=== PATIENT | female | born 1940 | race Caucasian/White ===

== ENCOUNTER 2018-01-28 12:16 | Inpatient (IN) | payer MEDICARE ==
[~2018-01-28] VITALS: Ht 160 cm; Wt 53.5 kg
--- NOTE | ~2018-01-28 | PN ---
PATIENT:AQUILES FOSTER MEDICAL RECORD: [id number] LOCATION:DIPTI Ross ADMISSION DATE: 01/28/18 PROGRESS NOTE DATE OF SERVICE: 01/30/2018 SUBJECTIVE: The patient states "I am getting worse." OBJECTIVE: Staff report that the patient has showed episodes of rather histrionic behavior. At one point, she entered the bathroom in her room and began pulling her own hair saying over and over to the image in the mirror "don't breakdown don't breakdown." Staff was able to meet with the patient's family. Daughters report that the patient has actually had lifelong mood swings. Staff also report some repetitive behaviors, which the daughter's confirm have been present for some time. The family is strongly interested in having the patient placed in an assisted living situation due to her suicidality. The patient was administered the Darby depression inventory. Despite the fact that the patient was told to be forthright and honest it appears that her responses on the inventory were invalid. She skewed her answers to give the appearance of minimal depressive symptoms, which is in strong contradistinction to her clinical presentation, statements to staff and family, and of course recent lethal suicide attempt. A self administered testing may not be helpful in this case. On exam, the patient's mood is irritable. Affect is brittle. Speech is rather terse. Content of thought focuses on somatic complaints. Sensorium shows no change. ASSESSMENT: No change in diagnosis. PLAN: 1. We will continue to maintain very close observation and monitoring. 2. We will work with family regarding aftercare plans. 3. Adjust medications as indicated. TRANSINT:[id number] Voice Confirmation ID: [id number] DOCUMENT ID: [id number] CANDE WATTERS III, MD at 0530 CC: [id number] DICTATION DATE: 01/30/18 1156 JOB HONER: 01/30/18 1301 ADM IN [facility] [address] [place] [address]
--- NOTE | ~2018-01-28 | PN ---
PATIENT:AQUILES FOSTER MEDICAL RECORD: [id number] LOCATION:DIPTI YangJacey112 ADMISSION DATE: 01/28/18 PROGRESS NOTE DATE OF SERVICE: 02/05/2018 SUBJECTIVE: The patient's case was discussed with staff. She has no new complaint. OBJECTIVE: The patient is in good behavioral control, but has some somatic complaints. It may be related to her medications and apparently she had similar complaints yesterday. Her medications were changed and the dosing times were changed to try to address this. I think there just has not been enough time with the changes made yesterday to see if there is any improvement. PLAN: The patient's family has given some history that is very consistent with an undiagnosed bipolar disorder. Based on this presumptive information, I am going to start her on a low dose of Depakote that I will titrate upward. TRANSINT:[id number] Voice Confirmation ID: [id number] DOCUMENT ID: [id number] BECKI HERRERA MD at 1159 CC: [id number] DICTATION DATE: 02/05/18 1255 TIME CLERK: 02/05/18 1312 ADM IN [facility] [address] [place] [address]
--- NOTE | ~2018-01-28 | PN ---
PATIENT:AQUILES FOSTER MEDICAL RECORD: [id number] LOCATION:DIPTI Ross ADMISSION DATE: 01/28/18 PROGRESS NOTE DATE OF SERVICE: 02/04/2018 SUBJECTIVE: No new complaint. OBJECTIVE: The patient is more alert and more animated today. She is participating somewhat better in group activities. On exam, mood is pleasant and euthymic. Affect is bland. Speech is fluent. Content of thought is negative for suicidal ideation. Sensorium shows no change. ASSESSMENT: No change in diagnosis. PLAN: 1. Maintain current medication. 2. Continue supportive therapy. TRANSINT:[id number] Voice Confirmation ID: [id number] DOCUMENT ID: [id number] CANDE WATTERS III, MD at 1014 CC: [id number] DICTATION DATE: 02/04/18 1144 WIRE BRUSHER: 02/04/18 1234 ADM IN [place] [id number] [place] [id number]
--- NOTE | ~2018-01-28 | PN ---
PATIENT:AQUILES FOSTER MEDICAL RECORD: [id number] LOCATION:DIPTI Ross ADMISSION DATE: 01/28/18 PROGRESS NOTE DATE OF SERVICE: 02/10/2018 SUBJECTIVE: The patient's case was discussed with staff. She has no new complaint. OBJECTIVE: The patient apparently had an upset stomach that she thinks is related to the Effexor. I am going to hold it for today and see if her upset stomach improves. She was having a fair amount of tremulousness the past couple of days and that actually has improved since I stopped the Wellbutrin. She has no thoughts of harming herself or others. ASSESSMENT: No change in diagnoses. PLAN: Current medicines have been reviewed and will be maintained. Long-term prognosis is guarded. TRANSINT:[id number] Voice Confirmation ID: [id number] DOCUMENT ID: [id number] BECKI HERRERA MD at 1236 CC: [id number] DICTATION DATE: 02/10/18 1313 ACCOUNTING ASSOCIATE: 02/10/18 [address] [facility] [address] [place] [address]
--- NOTE | ~2018-01-28 | PN ---
PATIENT:AQUILES FOSTER MEDICAL RECORD: [id number] LOCATION:DIPTI Ross ADMISSION DATE: 01/28/18 PROGRESS NOTE DATE OF SERVICE: 02/17/2018 SUBJECTIVE: No new complaint. OBJECTIVE: The patient's discharge has been delayed because her room at the [facility] is not ready, all of the furniture has not yet been moved in. The patient has been stable over the last 24 hours. On exam, mood is euthymic. Affect bland. Speech is fairly fluent. Content of thought, again focuses on somatic concerns only. Sensorium unchanged. ASSESSMENT: No change in diagnosis. PLAN: 1. Continue current treatment plan. 2. Anticipate discharge tomorrow. TRANSINT:[id number] Voice Confirmation ID: [id number] DOCUMENT ID: [id number] CANDE WATTERS III, MD at 0634 CC: [id number] DICTATION DATE: 02/17/18 1159 POPULATION HEALTH MANAGER: 02/17/18 1355 ADM IN [place] [id number] [place] [id number]
--- NOTE | ~2018-01-28 | PN ---
PATIENT:AQUILES FOSTER MEDICAL RECORD: [id number] LOCATION:DIPTI oRss ADMISSION DATE: 01/28/18 PROGRESS NOTE DATE OF SERVICE: 02/14/2018 SUBJECTIVE: The patient's case was discussed with staff. She has no new complaint. OBJECTIVE: The patient denies intent to harm herself or others. She generally tolerates her medicines well. She does not interestingly have any somatic complaints today. ASSESSMENT: No change in diagnoses. PLAN: I have reviewed this patient's medications. If it were not for the fact that she is so reluctant to take medicine and so somatic, I would probably increase the dose of her Depakote and/or Effexor, but I think it is best to leave it as it is right now. She will be followed on an outpatient basis and I am concerned that she will refuse to take medicine if I increase the dose and she is not showing evidence of acute dangerousness and has not for some time and that is actually the target goal as opposed to a number that is predestined with her medication. TRANSINT:[id number] Voice Confirmation ID: [id number] DOCUMENT ID: [id number] BECKI HERRERA MD at 1433 CC: [id number] DICTATION DATE: 02/14/18924 SCIENCE INSTRUCTOR: 02/14/18 09 ADM IN [place] [id number] [place] [address]
--- NOTE | ~2018-01-28 | PN ---
PATIENT:AQUILES FOSTER MEDICAL RECORD: [id number] LOCATION:DIPTI Ross ADMISSION DATE: 01/28/18 PROGRESS NOTE DATE OF SERVICE: 02/12/2018 SUBJECTIVE: The patient's case was discussed with staff. She has no new complaint. OBJECTIVE: The patient denies intent to harm herself or others. She generally tolerates her medicines well. Eye contact is fair. ASSESSMENT: No change in diagnoses. PLAN: Brief supportive and educational interventions were made. The patient is still having the nausea. I am going to order some baseline labs, but based on the pattern she is describing, I just do not think it is related to her medications. TRANSINT:[id number] Voice Confirmation ID: [id number] DOCUMENT ID: [id number] BECKI HERRERA MD at 1521 CC: [id number] DICTATION DATE: 02/12/18 1400 RETAIL EQUIPMENT ASSOCIATE: 02/12/18 1504 ADM IN [place] [address] [place] [address]
--- NOTE | ~2018-01-28 | PN ---
PATIENT:AQUILES FOSTER MEDICAL RECORD: [id number] LOCATION:DIPTI Ross ADMISSION DATE: 01/28/18 PROGRESS NOTE DATE OF SERVICE: 02/07/2018 SUBJECTIVE: The patient's case was discussed with staff. She has no new complaint. OBJECTIVE: The patient is in good behavioral control with limited insight about her condition. She tolerates her medicines well. ASSESSMENT: No change in diagnoses. PLAN: The patient has improved since being started on Depakote. I think that this would be additional evidence that she probably has had an undiagnosed or previously unrecognized mood disorder. I am going to leave the dose as it is for now since she tends to be quite somatic. I probably will end up increasing the dose before she is discharged. TRANSINT:[id number] Voice Confirmation ID: [id number] DOCUMENT ID: [id number] BECKI HERRERA MD at 1101 CC: [id number] DICTATION DATE: 02/07/18 1140 ROD TAPE OPERATOR: 02/07/18 2253 ADM IN [place] [address] [place] [address]
--- NOTE | ~2018-01-28 | PN ---
PATIENT:AQUILES FOSTER MEDICAL RECORD: [id number] LOCATION:DIPTI YangJaceyPatito ADMISSION DATE: 01/28/18 PROGRESS NOTE DATE OF SERVICE: 02/11/2018 SUBJECTIVE: The patient's case was discussed with staff. She has no new complaint. OBJECTIVE: The patient is still experiencing the nausea that she had yesterday. I am not sure what the cause of this is, but I can say with reasonable certainty that it is not the Effexor that I held and she has not had for more than 24 hours. ASSESSMENT: No change in diagnoses. PLAN: The patient will be restarted on Effexor. Her long-term prognosis is guarded. [facility]. TRANSINT:[id number] Voice Confirmation ID: [id number] DOCUMENT ID: [id number] BECKI HERRERA MD at 1332 CC: [id number] DICTATION DATE: 02/11/18 1248 OFFICE ELECTRICIAN: 02/11/18 1353 ADM IN [place] [address] [place] [id number]
--- NOTE | ~2018-01-28 | PN ---
PATIENT:AQUILES FOSTER MEDICAL RECORD: [id number] LOCATION:DIPTI Ross ADMISSION DATE: 01/28/18 PROGRESS NOTE DATE OF SERVICE: 02/13/2018 SUBJECTIVE: The patient's case was discussed with staff. She has no new complaint. OBJECTIVE: The patient has a euthymic mood. She still has some somatic complaints with no objective findings. She denies that she would seek to harm herself or others. ASSESSMENT: No change in diagnoses. PLAN: Supportive and educational interventions were made. Long-Term prognosis is guarded. I anticipate she can be transitioned out of the hospital soon if this level of improvement is maintained. TRANSINT:[id number] Voice Confirmation ID: [id number] DOCUMENT ID: [id number] BECKI HERRERA MD at 0908 CC: [id number] DICTATION DATE: 02/13/18 1550 CORPORATE ATTORNEY: 02/13/18 1617 ADM IN [place] [id number] [place] [id number]
--- NOTE | ~2018-01-28 | PN ---
PATIENT:AQUILES FOSTER MEDICAL RECORD: [id number] LOCATION:DIPTI Ross ADMISSION DATE: 01/28/18 PROGRESS NOTE DATE OF SERVICE: 02/09/2018 SUBJECTIVE: The patient's case was discussed with staff. She has no new complaint. OBJECTIVE: The patient complains of anxiety and indeed she does seem to be trembling. ASSESSMENT: No change in diagnoses. PLAN: The patient is not suicidal. She is taking Wellbutrin, which has a known side effect of anxiety. I am going to discontinue it and start her on a low dose of Effexor that I will titrate upward. Her long-term prognosis is guarded. TRANSINT:[id number] Voice Confirmation ID: [id number] DOCUMENT ID: [id number] BECKI HERRERA MD at 1236 CC: [id number] DICTATION DATE: 02/09/18 1429 MAKEUP EDITOR: 02/09/18 1434 ADM IN [place] [id number] [place] [id number]
--- NOTE | ~2018-01-28 | PN ---
PATIENT:AQUILES BLUNT MEDICAL RECORD: [id number] LOCATION:DIPTI Jackson112 ADMISSION DATE: 01/28/18 PROGRESS NOTE DATE OF SERVICE: 02/03/2018 SUBJECTIVE: Ms. Blunt states that she is having some gastritis as well as morning drowsiness. OBJECTIVE: The patient had stated earlier to staff that now she does not know why she attempted suicide. On exam, the patient's mood is slightly anxious. Affect is overall slightly constricted. Speech is fluent. Content of thought focuses on somatic concerns. Sensorium shows no change. ASSESSMENT: No change in diagnosis. PLAN: 1. Continue current medication. 2. Continue supportive therapy. TRANSINT:[id number] Voice Confirmation ID: [id number] DOCUMENT ID: [id number] CANDE WATTERS III, MD at 1048 CC: [id number] DICTATION DATE: 02/03/18 1207 RICE CLEANING MACHINE TENDER: 02/03/18 1232 ADM IN [place] [id number] [place] [address]
--- NOTE | ~2018-01-28 | PN ---
PATIENT:AQUILES FOSTER MEDICAL RECORD: [id number] LOCATION:DIPTI Ross ADMISSION DATE: 01/28/18 PROGRESS NOTE DATE OF SERVICE: 02/02/2018 SUBJECTIVE: No new complaint noted. OBJECTIVE: The patient is sleeping a little bit better. She continues to have some somatic concerns regarding her lacerations. She is due for a dressing change tomorrow. The patient scored 28 out of 30 on the [facility] Mental Status Exam. On exam, mood is euthymic. Affect is very constricted. Speech is somewhat terse. Content of thought is negative for overt psychosis. The patient denies suicidal intent. Sensorium shows no change. ASSESSMENT: No change in diagnoses. PLAN: 1. Maintain current medication. 2. Continue close observation. TRANSINT:[id number] Voice Confirmation ID: [id number] DOCUMENT ID: [id number] CANDE WATTERS III, MD at 1048 CC: [id number] DICTATION DATE: 02/02/18 1156 PLUM PACKER: 02/02/18 1303 ADM IN [place] [id number] [place] [id number]
--- NOTE | ~2018-01-28 | PN ---
PATIENT:AQUILES FOSTER MEDICAL RECORD: [id number] LOCATION:DIPTI Ross ADMISSION DATE: 01/28/18 PROGRESS NOTE DATE OF SERVICE: 02/08/2018 SUBJECTIVE: The patient's case was discussed with staff. She has no new complaint. OBJECTIVE: The patient has been a little sedated. She slept for over 10 hours last night and looks a little sleepy today. ASSESSMENT: No change in diagnoses. PLAN: Current medicines have been reviewed and will be maintained. I am going to discontinue the trazodone as she certainly does not need anything to assist with sleep consolidation. I am going to leave the Depakote dose as it is today. I would anticipate titrating it upward over the next few days. TRANSINT:[id number] Voice Confirmation ID: [id number] DOCUMENT ID: [id number] BECKI HERRERA MD at 1407 CC: [id number] DICTATION DATE: 02/08/18 1127 CNC MACHINIST: 02/08/18 1434 ADM IN [place] [id number] [place] [id number]
--- NOTE | ~2018-01-28 | PSY ---
PATIENT NAME:AQUILES FOSTER MEDICAL RECORD: [id number] : 40 LOCATION:DIPTI Vandana4 ADMISSION DATE: 01/28/18 ACCOUNT: [id number] PSYCHIATRIC EVALUATION DATE OF EVALUATION: 01/29/18 IDENTIFYING DATA: This is the first [facility] admission and third lifetime psychiatric admission for this 77-year-old white female. HISTORY OF PRESENT ILLNESS: This patient was admitted to [facility] following a suicide attempt. The patient had used unusually lethal means in order to try to kill herself. She had used a box nailer to lacerate both forearms as well as her chest and neck. The patient did undergo surgical repair of multiple lacerations. The lacerations were extremely deep in the forearms reaching the level of the muscles and tendons. The patient was also noted to have a urinary tract infection. She was stabilized while at [facility] and request was made for transfer to [facility] because of severe risk of harm to self. History was further obtained from the patient's family as well as the patient herself. The patient has a history of depression that has been intermittent over at least the last 15 years. Her second committed suicide and following that time, the patient did experience low mood and extreme dysphoria. However, she states that she compensated this by becoming extremely active. She stated that people often remarked to her that she seemed to be handling the tragedy unusually well. The patient from the outset minimizes the severity of her depressive symptoms. This is corroborated by report from one of her daughters indicating that after the patient had been admitted to the psychiatric unit at [facility] in [place], she was discharged after only 2 days because staff evidently felt that she had recovered. The patient was in fact admitted to [facility] earlier this year with significant depressive symptoms. However, she was dissatisfied with treatment there and at a later time was admitted to [facility] for her brief stay. Over the course of the last several weeks, the patient has been tried on Remeron 15 mg h.s. and also at one point Abilify. It is not known if she has taken other antidepressant medications recently or in the past and the patient herself is unclear about this aspect of her history. Prior to the admission at , the patient evidently had been in contact with the family. She had actually been on the phone with her son on the day of the suicide attempt. The son was quite alarmed and told the patient that he was going to call the police. After they hung up, the patient went into her bathroom, took a box nailer and lacerated herself multiple times. The patient also may have attempted to choke herself as indicated by scratch saucedo on her neck. In addition, the patient did leave a suicide note and wrote out a number of checks to pay current bills. The patient does admit to regular drinking. She stated that she stopped drinking about 3 months ago. She did not offer further details about this. It is of interest that her father was a severe alcoholic. PAST MEDICAL HISTORY: As mentioned, the patient has had a recent urinary tract infection. She also has a history of hypothyroidism and does take medication for this. FAMILY HISTORY: Significant from a psychiatric standpoint. The patient denies that first degree relatives have had mood disorders. However, as mentioned, her father was an alcoholic. The patient also has a daughter who is an alcoholic and the daughter has been sober for 7 years according to the patient. SOCIAL HISTORY: The patient has been twice. Her first was killed when a tree fell on him. Her second committed suicide. The patient has 4 children. She has 2 sons, both of whom are physicians, one of her sons is a surgeon in [facility] and the other is a family practitioner in [place]. Her 2 daughters live in this area. The patient moved to the [facility] about 2 years ago. Prior to that, she had lived in [place] for around 50 years. She currently lives in a House in [place]. MEDICATIONS: At the time of admission included Synthroid 50 mcg daily, Remeron 15 h.s., Colace, p.r.n. oxycodone. ALLERGIES: Listed as MEPERIDINE and LEVOFLOXACIN. MENTAL STATUS: On interview, the patient is cooperative. She has bandages on both arms and on the neck as well. As mentioned, the patient tends to minimize the severity of her symptoms. However, she does make good eye contact. She walks with some difficulty as she states that she is feeling rather weak. Mood during the interview is superficially euthymic. Affect is very guarded. Speech is somewhat low in volume, but otherwise fluent. Content of thought obviously positive for recent suicidal intent. No evidence of psychosis. The patient is oriented to person, place, month, and year. Remote and intermediate recall appear to be fairly good. She does have some minor concentration difficulties and word finding pauses. Insight is limited. Judgment is questionable. DIAGNOSTIC IMPRESSION: AXIS I: Major depressive disorder -- recurrent. AXIS II: Deferred. AXIS III: Hypothyroidism, recent urinary tract infections, lacerations to both arms, chest and neck. AXIS IV: Severe. AXIS V: 40. PLAN: 1. The patient will remain on suicide precautions. 2. Discontinue Remeron. 3. Begin Wellbutrin-XR 150 mg in the morning and Luvox 50 mg h.s. 4. We will coordinate with family regarding continuing care and aftercare. 5. Daily supportive therapy. 6. Neuropsychological testing. 7. Routine administration of the Darby depression inventory. TRANSINT:[id number] Voice Confirmation ID: [id number] DOCUMENT ID: [id number] CANDE WATTERS III, MD at 0933 CC: [id number] DICTATION DATE: 01/29/18 121 SURVEYOR CHAIN HELPER: 01/29/18 1228 [facility] IN [place] [id number] [place] [address]
--- NOTE | ~2018-01-28 | DS ---
PATIENT:AQUILES FOSTER :40 MEDICAL RECORD: [id number] DISCHARGE SUMMARY ADMISSION DATE: 01/28/18 DISCHARGE DATE: 02/18/18 DATE OF ADMISSION: 01/28/2018 DATE OF DISCHARGE: 02/18/2018 HISTORY: A 77-year-old white female admitted on referral from [facility], the patient had attempted suicide in a lethal manner. She had used a boxing trainer to lacerate both forearms as well as her chest and neck. The patient had required a surgical repair of multiple lacerations, over 150 sutures were taken. For further details, please see previously dictated history. COURSE IN THE HOSPITAL: The patient was seen in consultation by Dr. Gardner. He noted the presence of hypothyroidism and ordered intensive wound care. The patient from the onset was reluctant to accept much in the way of treatment. She was very resistant when approached about taking mood stabilizing medications. She had frequent specious complaints inconsistent with her clinical presentation. Eventually, the staff were able to convince her to routinely except Depakote DR 500 mg daily, and venlafaxine 50 mg b.i.d. The patient did show stabilization of mood, and over the course of the hospitalization did not show further suicidal statements or self-injurious behavior. Case management worked very diligently with the patient's family, who concluded (4 children) that the best approach would be to have [facility]. The patient had not been caring for herself well at her home. The patient was initially resistant to this plan of action, but when her children insisted upon it, she did agree. By the time of discharge, the patient appeared euthymic. She continued to have numerous minor somatic complaints, but each of these had been addressed previously by staff and by Dr. Gardner. It was elected to continue her on her current medications at the time of discharge. FINAL DIAGNOSES: AXIS I: Major depressive disorder - recurrent. AXIS II: Cluster B personality traits. AXIS III: Severe lacerations to arms, chest, and neck - resolving (sutures have been removed), recent urinary tract infection, hypothyroidism. AXIS IV: Moderate. AXIS V: 50. PLAN: 1. The patient will [facility] the [facility]. 2. Follow up through [facility]. 3. Follow up with primary care physician. TRANSINT:[id number] Voice Confirmation ID: [id number] DOCUMENT ID: [id number] DISCHARGE SUMMARY REPORT [id number] AQUILES FOSTER III, CANDE Hendrickson MD at 0515 CC: [id number] DICTATION DATE: 02/18/18 113 TRAIN CREW MEMBER: 02/18/18 1442 DIS IN 02/18/18 [facility] [address] [place] [id number]
--- NOTE | ~2018-01-28 | PN ---
PATIENT:AQUILES FOSTER MEDICAL RECORD: [id number] LOCATION:DIPTI Ross ADMISSION DATE: 01/28/18 PROGRESS NOTE DATE OF SERVICE: 02/06/2018 SUBJECTIVE: The patient's case was discussed with staff. She has no new complaint. OBJECTIVE: The patient is disorganized, but oriented. She jumps a little bit from subject to subject which is probably related to anxiety. She has been started on Depakote for its mood stabilizing properties. ASSESSMENT: No change in diagnoses. PLAN: Supportive and educational interventions were made. Residential prognosis is guarded. TRANSINT:[id number] Voice Confirmation ID: [id number] DOCUMENT ID: [id number] BECKI HERRERA MD at 2006 CC: [id number] DICTATION DATE: 02/06/18 1205 CALENDER LET OFF HELPER: 02/06/18 1227 ADM IN [place] [id number] [place] [address]
--- NOTE | ~2018-01-28 | PN ---
PATIENT:AQUILES FOSTER MEDICAL RECORD: [id number] LOCATION:[facility] ADMISSION DATE: 01/28/18 PROGRESS NOTE DATE OF SERVICE: 02/16/2018 SUBJECTIVE: The patient's only complaint is some daytime drowsiness. OBJECTIVE: The patient has done well during the interim. She has not made any further suicidal statements. Arrangements have been made for transfer to the [facility] tomorrow with follow up at the [facility] intensive outpatient program. She will also be followed by her primary care physician. On exam, mood is pleasant and euthymic. Affect is bland. Speech is fluent. Content of thought focuses primarily on somatic concerns. No suicidal ideation. Sensorium is clear. ASSESSMENT: No change in diagnosis. PLAN: 1. Continue all current medications and treatment. 2. Anticipate discharge tomorrow. TRANSINT:[id number] Voice Confirmation ID: [id number] DOCUMENT ID: [id number] CANDE WATTERS III, MD at 2144 CC: [id number] DICTATION DATE: 02/16/18 1101 SEX THERAPIST: 02/16/18 1400 ADM IN [facility] [address] [place] [address]
[2018-01-28] MEDS ORDERED: COLACE100 MG PO (15:01)
[2018-01-28] MEDS ORDERED: SYNTHROID50 MCG PO (15:02)
[2018-01-28] MEDS ORDERED: REMERON15 MG PO (15:03)
[2018-01-28] MEDS ORDERED: OXYCONTIN10 MG PO (15:04)
[2018-01-28 15:31] VITALS: BP 128/62
[2018-01-28 15:32] VITALS: BMI 20.3
[2018-01-28 16:07] LABS: APPEARANCE CLEAR (CLEAR); BILIRUBIN NEGATIVE (NEGATIVE); COLOR YELLOW (YELLOW); GLUCOSE NEGATIVE (NEGATIVE); KETONE NEGATIVE (NEGATIVE); NITRITE NEGATIVE (NEGATIVE); PROTEIN NEGATIVE (NEGATIVE); UROBILINOGEN NORMAL (NORMAL)
[2018-01-28 16:08] LABS: BACTERIA FEW /hpf (NONE SEEN); EPITHELIAL CELLS OCC /hpf (0-5); RED CELLS - URINE 0-5 /hpf (0-5); WHITE CELLS - URINE 0-5 /hpf (0-5)
[2018-01-28 20:04] VITALS: BP 144/69
[2018-01-28 20:05] VITALS: BP 144/69
[2018-01-29 08:11] VITALS: BP 128/62; BMI 20.3
[2018-01-29 08:42] VITALS: BP 145/61; BP 150/83
[2018-01-29 13:31] VITALS: Ht 160 cm; Wt 53.5 kg
[2018-01-29 19:21] VITALS: BP 128/74
[2018-01-30 08:34] VITALS: BP 150/79
[2018-01-30 19:47] VITALS: BP 152/63; BP 169/80
[2018-01-31 09:10] VITALS: BP 132/72
[2018-01-31 19:18] VITALS: BP 143/75
[2018-02-01 07:00] VITALS: BP 103/57
[2018-02-01 18:56] VITALS: BP 146/72
[2018-02-02 07:00] VITALS: BP 145/73
[2018-02-02 19:43] VITALS: BP 126/67
[2018-02-03 09:30] VITALS: BP 161/77
[2018-02-03 21:16] VITALS: BP 140/73
[2018-02-04 10:40] VITALS: BP 114/66
[2018-02-04 19:45] VITALS: BP 97/52
[2018-02-05 09:06] VITALS: BP 125/52
[2018-02-05 21:12] VITALS: BP 122/57
[2018-02-06 08:13] VITALS: BP 107/68
[2018-02-06 19:30] VITALS: BP 123/67
[2018-02-07 10:34] VITALS: BP 111/75
[2018-02-07 20:46] VITALS: BP 131/83
[2018-02-08 07:00] VITALS: BP 140/94
[2018-02-08 18:45] VITALS: BP 142/67
[2018-02-09 07:00] VITALS: BP 142/74
[2018-02-09 20:31] VITALS: BP 117/80
[2018-02-10 09:40] VITALS: BP 158/79
[2018-02-10 22:01] VITALS: BP 118/60
[2018-02-11 09:05] VITALS: BP 160/83
[2018-02-11 21:21] VITALS: BP 134/66
[2018-02-12 08:06] VITALS: BP 132/84
[2018-02-12 15:07] LABS: BASOPHILS 0.5 % (0-2); EOSINOPHILS 0.8 % (0-7); HEMATOCRIT 35.6 % (36.0-48.0); HEMOGLOBIN 11.8 g/dL (12-16); IMMATURE GRANULOCYTES 0.5 % (0-5); LYMPHOCYTES 20.2 % (15-50); MCH 30.3 pg (26.0-34.0); MCHC 33.1 g/dL (31.0-37.0); MCV 91.5 fL (80.0-100.0); MEAN PLATELET VOLUME 9.1 fL (7.4-10.4); MONOCYTES 15.5 % (2-11); NEUTROPHILS 62.5 % (40-80); PLATELET COUNT 403 10x3/uL (130-400); RBC 3.89 10x6/uL (4.00-5.40); RDW 13.7 % (11.5-14.5); WBC 6.2 10x3/uL (4.8-10.8)
[2018-02-12 15:36] LABS: ANION GAP 10.8 mmol/L (8-16); CALCIUM 8.7 mg/dL (8.5-10.1); CARBON DIOXIDE 28.4 mmol/L (21.0-32.0); CREATININE - SERUM 0.8 mg/dL (0.6-1.3); POTASSIUM - SERUM 4.2 mmol/L (3.5-5.1)
[2018-02-12 19:19] VITALS: BP 148/74
[2018-02-13 09:11] VITALS: BP 137/83
[2018-02-13 19:11] VITALS: BP 143/77
[2018-02-14 07:47] VITALS: BP 127/67
[2018-02-14 19:50] VITALS: BP 150/64
[2018-02-15 07:00] VITALS: BP 126/75
[2018-02-15 20:16] VITALS: BP 143/80
[2018-02-15 21:58] VITALS: BP 143/80
[2018-02-16 07:23] VITALS: BP 127/72
[2018-02-16] MEDS ORDERED: EFFEXOR50 MG PO (10:57)
[2018-02-16] MEDS ORDERED: DEPAKOTE500 MG PO (10:57)
[2018-02-16] MEDS ORDERED: MIRALAX17 GM PO (10:58)
[2018-02-16] MEDS ORDERED: PROTONIX40 MG PO (10:58)
[2018-02-16] MEDS ORDERED: FLORANEX / LACT1 TAB PO (10:58)
[2018-02-16 19:43] VITALS: BP 113/70
[2018-02-17 09:33] VITALS: BP 161/79
[2018-02-17 20:42] VITALS: BP 127/68
[2018-02-18 11:57] VITALS: BP 150/78
== END 2018-02-18 10:30 | disposition home or self-care (01) | DRG 885 ==
LOC: D.PSYCH 12:16
PROVIDERS: Psychiatry & Neurology Psychiatry
DX: F33.9 Major depressive disorder, recurrent, unspecified (principal); T14.91XA Suicide attempt, initial encounter; X78.8XXA Intentional self-harm by other sharp object, initial encounter; F41.9 Anxiety disorder, unspecified; K59.00 Constipation, unspecified; E03.9 Hypothyroidism, unspecified

== ENCOUNTER 2019-09-28 15:00 | Emergency (ER) | payer MEDICARE, BC ==
[~2019-09-28] VITALS: Ht 160 cm; Wt 46.4 kg
[~2019-09-28 15:00] MED LIST: COLACE100 MG PO; DEPAKOTE500 MG PO; EFFEXOR50 MG PO; FLORANEX / LACT1 TAB PO; MIRALAX17 GM PO; OXYCONTIN10 MG PO; PROTONIX40 MG PO; REMERON15 MG PO; SYNTHROID50 MCG PO
[2019-09-28 15:08] VITALS: Ht 160 cm; Wt 46.4 kg
[2019-09-28 15:36] LABS: UDS - AMPHET NEGATIVE QUAL (NEGATIVE); UDS - BARB NEGATIVE QUAL (NEGATIVE); UDS - BENZO NEGATIVE QUAL (NEGATIVE); UDS - COCAINE NEGATIVE QUAL (NEGATIVE); UDS - OPIATE NEGATIVE QUAL (NEGATIVE); UDS - PCP NEGATIVE QUAL (NEGATIVE); UDS - THC NEGATIVE QUAL (NEGATIVE)
[2019-09-28 15:37] LABS: APPEARANCE CLEAR (CLEAR); BILIRUBIN NEGATIVE (NEGATIVE); COLOR YELLOW (YELLOW); GLUCOSE NEGATIVE (NEGATIVE); KETONE NEGATIVE (NEGATIVE); NITRITE NEGATIVE (NEGATIVE); PROTEIN NEGATIVE (NEGATIVE); SPECIFIC GRAVITY 1.015 (1.005-1.020); UROBILINOGEN NORMAL (NORMAL)
[2019-09-28 15:42] LABS: BACTERIA MODERATE /hpf (NEGATIVE); EPITHELIAL CELLS 0-5 /hpf (0-5); RED CELLS - URINE 0-5 /hpf (0-5); WHITE CELLS - URINE 0-5 /hpf (NEGATIVE)
[2019-09-28 15:44] LABS: BASOPHILS 0.5 % (0-2); EOSINOPHILS 1.4 % (0-7); HEMATOCRIT 40.2 % (36.0-48.0); HEMOGLOBIN 13.2 g/dL (12-16); IMMATURE GRANULOCYTES 0.2 % (0-5); MCH 31.4 pg (26.0-34.0); MCHC 32.8 g/dL (31.0-37.0); MCV 95.5 fL (80.0-100.0); MEAN PLATELET VOLUME 9.5 fL (7.4-10.4); MONOCYTES 11.5 % (2-11); NEUTROPHILS 61.4 % (40-80); RBC 4.21 10x6/uL (4.00-5.40); RDW 13.8 % (11.5-14.5); WBC 5.6 10x3/uL (4.8-10.8)
[2019-09-28 15:52] LABS: PLATELET COUNT 320 10x3/uL (130-400)
[2019-09-28 16:02] LABS: ANION GAP 11.3 mmol/L (8-16); CALCIUM 8.8 mg/dL (8.5-10.1); CARBON DIOXIDE 28.8 mmol/L (21.0-32.0); CREATININE - SERUM 0.8 mg/dL (0.6-1.3); POTASSIUM - SERUM 4.1 mmol/L (3.5-5.1)
[2019-09-28 16:17] LABS: BILIRUBIN - TOTAL 0.15 mg/dL (0.2-1.3); PROTEIN - SERUM 6.2 g/dL (6.4-8.2); T4 THYROXIN - FREE 1.22 ng/dL (0.76-1.46); THYROID STIMULATING HORMONE 1.87 uIU/mL (0.36-3.74)
[2019-09-28 21:07] VITALS: BP 130/76
== END 2019-09-28 21:07 | disposition home or self-care (01) ==
LOC: D.ER 15:00
PROVIDERS: Family Medicine
DX: E86.0 Dehydration (principal); F41.9 Anxiety disorder, unspecified